=== PATIENT | female | born 1930 | race African-American/Black ===

== ENCOUNTER 2017-09-06 06:50 | Observation (INO) | payer MEDICARE, BC ==
[2017-09-06] MEDS ORDERED: Dextrose 50% Abboject 50 ML SYRINGE SLOW IVP PRN (07:51)
[2017-09-06] MEDS ORDERED: Dextrose 5% in Water 1,000 ML IV PRN (07:51)
[2017-09-06] MEDS ORDERED: Insulin Regular 300 UNITS/3 ML VIAL SC PRN (07:51)
[2017-09-06 08:01] LABS: Troponin I 0.016 ng/mL (< 0.028)
--- NOTE | 2017-09-06 08:29 | HP ---
DATE OF ADMISSION: 09/06/2017 CHIEF COMPLAINT: Chest pain. HISTORY OF PRESENT ILLNESS: This is an 86-year-old elderly -Serbian female with known past m edical history of hypertension and type 2 diabetes mellitus. The patient lives on her own in her [facility]. She lives for the past 2 weeks and was noticing some low grade chest pains associated with d iarrhea for the past 2-3 weeks. Chest pain she noted yesterday afternoon was mild, but 4/5 intensity was on the left precordium, not radiating. No aggravating or no relieving factors. Pain lasted for at least 1-2 hours and use to go away. She wanted to evaluate this pain and she went to [facility] where she had a chest x-ray and troponin which was negative. The patient was referred to [facility] for further evaluation of her recurrent chest pains. Patient has a known history of simila r chest pains in the past more than 2 years ago and had nuclear stress test at that time that was neg ative according to her. She otherwise is in good health. She has diabetes and hypertension, which i s fairly well controlled according to her. She has no family members or no support and she lives all alone and she has this chronic diarrhea for the past 2-3 weeks and she has been dehydrated and very weak and she is afraid of falls when she goes home. So she wanted to go to the penitentiary before s he goes back home and she wants to get much stronger. She denies having any abdominal pain. Denies having any recent antibiotic for any infection. She denied having any evidence of food poisoning. S he does have nausea along with diarrhea, but no vomiting. PAST MEDICAL HISTORY: 1. Hypertension. 2. Hyperlipidemia. 3. Type 2 diabetes mellitus. 4. History of depression. 5. History of breast cancer and history of colon cancer in the past. PAST SURGICAL HISTORY: 1. Partial colectomy for colon cancer many years ago. 2. Right lumpectomy for breast cancer. 3. History of abdominal hernia repairs in the past. SOCIAL HISTORY: The patient is a nonsmoker. No history of alcohol, no history of illicit drug use. She lives on her own. No other family member lives with her. No friends are there to help her acco rding to her. FAMILY HISTORY: Has been reviewed and not relevant for the elderly age of the patient. REVIEW OF SYSTEMS: All 12 systems are reviewed with the patient and found to be negative except at t his time except the ones described in the HPI. The following complete review of systems was negative , unless otherwise mentioned in the HPI or below: Constitutional: Weight loss or gain, sense of well-being, ability to conduct usual activities, exerc ise tolerance. Skin/Breast: Rash, itching, changes in hair growth or loss, nail changes, breast lumps, tenderness, swelling, nipple discharge. Eyes: Vision, double vision, tearing, blind spots, pain. ENT/Mouth: Headaches (location, time of onset, duration, precipitating factors), vertigo, lightheade dness, injury. Vision, double vision, tearing, blind spots, pain, nose bleeding, colds, obstruction, discharge, dental difficulties, gingival bleeding, dentures, neck stiffness, pain, tenderness, masses in thyroid or other areas Cardiovascular: Precordial pain, substernal distress, palpitations, syncope, dyspnea on exertion, or thopnea, nocturnal paroxysmal dyspnea, edema, cyanosis, hypertension, heart murmurs, varicosities, ph lebitis, claudication. Respiratory: Pain, shortness of breath, wheezing, stridor, cough, hemoptysis, fever or night sweats Gastrointestinal: Poor appetite, dysphagia, indigestion, abdominal pain, heartburn, eructation, naus ea, vomiting, hematemesis, jaundice, constipation, or diarrhea, abnormal stools (christian-colored, tarry, bloody, greasy, foul smelling), flatulence, hemorrhoids, recent changes in bowel habits. Genitourinary: Urgency, frequency, dysuria, nocturia, hematuria, polyuria, oliguria, unusual (or messi nge in) color of urine, stones, hesitancy, change in size of stream, dribbling, acute retention or in continence, libido, potency. Musculoskeletal: Pain, swelling, redness or heat of muscles or joints, limitation, of motion, muscul ar weakness, atrophy, cramps. Neurologic/Psychiatric: Convulsions, paralyses, tremor, incoordination, paraesthesias, difficulties with memory of speech, sensory or motor disturbances, or muscular coordination (ataxia, tremor), emot ional problems, anxiety, depression, previous psychiatric care, unusual perceptions, hallucinations. Allergy/Immunologic: Skin rash, anemia, bleeding tendency, polydipsia, polyuria, intolerance to heat or cold. PHYSICAL EXAMINATION: VITAL SIGNS: Blood pressure is 171/68, heart rate is 80, respiratory rate is 18, and saturation is 9 8%. GENERAL: The patient is moderately built and moderately nourished and she does not appear to be in a cute distress at this time. She is seen lying in the bed supine. Does not appear to be in any acute distress. HEENT: Atraumatic, normocephalic. PERRLA. Extraocular movements were intact. Oral mucosa is pink and moist. CARDIOVASCULAR: S1, S2 normal. No murmurs, no rubs, no gallops. LUNGS: Bilateral air entry was equal. No wheezing, no crackles. ABDOMEN: Soft, nontender, no guarding, no rebound tenderness. Bowel sounds normal. MUSCULOSKELETAL: No calf tenderness. No pedal edema. EXTREMITIES: No joint tenderness, no joint swelling. SKIN: No cyanosis, no erythema, no rash, no pallor. NEUROLOGIC: Cranial nerve examination II-XII intact. No focal deficits were noted. LYMPHATICS: No evidence of any lymph nodes were noted. NECK: No JVD, no thyromegaly was noted. LABORATORY DATA: Sodium 141, potassium 3.9, chloride 105, BUN 14, creatinine 1.2, troponin 0.01. UA was positive for urinary tract infection. D-dimer was elevated, WBC 10.5, hemoglobin 13.1, and german tocrit is normal. ASSESSMENT AND PLAN: 1. Acute chest pain. 2. Acute urinary tract infection. 3. Chronic diarrhea. 4. Intractable nausea. 5. Type 2 diabetes mellitus. 6. Uncontrolled hypertension. 7. History of depression. PLAN: 1. Plan is to restart the patient on normal saline at 75 an hour for hydration and we will closely m onitor the patient with serial troponins q.6 hours. We will do a nuclear stress test tomorrow if the patient's troponins levels remain normal. 2. We will start the patient on aspirin, beta liya, and statin. 3. As the patient has history of UTI with UA being positive, we will send for urine cultures and sta rt the patient on Rocephin 1 gram daily. 4. The patient has a history of elevated blood pressure and is poorly controlled. We will restart t he home medications and optimize the blood pressures to keep it less than 130/80. 5. History of type 2 diabetes mellitus, well-controlled. We will restart her home medication and pu t her on sliding scale insulin at this time and we will do hemoglobin A1c to look for the control. 6. As the patient has high risk for falls at home because of chronic comorbidities, we will discuss with case management for possible placement to penitentiary as the patient would be high risk for sofiya dmission and also for falls at home. 7. DVT prophylaxis, Lovenox 40 mg subcu daily. I spent 70 minutes on this patient.
[2017-09-06] MEDS ORDERED: Loperamide HCl 2 MG CAP PO PRN (09:43)
[2017-09-06] MEDS ORDERED: Zolpidem Tartrate 5 MG TAB PO PRN (09:43)
[2017-09-06] MEDS ORDERED: Pepto Bismol Chew TAB PO PRN (09:43)
[2017-09-06 09:57] VITALS: BMI 27.1
[2017-09-06 10:22] LABS: Cardiac Risk 4.1 (Less than 4.5)
[2017-09-06] MEDS ORDERED: Famotidine/PF 20 mg/2ml Vial SLOW IVP SCH (10:45)
[2017-09-06] MEDS ORDERED: Carvedilol 3.125 MG TAB PO SCH (10:45)
[2017-09-06] MEDS ORDERED: Enoxaparin Sodium 40 MG/0.4 ML SYRINGE SC SCH (10:45)
[2017-09-06] MEDS: Sodium Chloride 0.9% 1,000 ML IV SCH (10:53)
[2017-09-06] MEDS: hydrALAZINE 25 MG TAB PO SCH ×3 (11:03→20:51)
[2017-09-06] MEDS: Lisinopril/Hydrochlorothiazide 10 mg/12.5 mg Tablet PO SCH (11:29)
[2017-09-06] MEDS: Alogliptin 25 MG TAB PO SCH (11:29)
[2017-09-06] MEDS: Amlodipine 10 MG TAB PO SCH (11:29)
[2017-09-06] MEDS ORDERED: FLU VACC TS2017-18 (>65YR) 0.5 ML SYRINGE IM ONE (15:00)
[2017-09-06] MEDS ORDERED: Prevnar 13-Val Conj/PF 0.5 ML SYRINGE IM ONE (15:00)
[2017-09-06] MEDS ORDERED: Acetaminophen 325 MG TAB PO PRN (17:30)
[2017-09-06] MEDS: Carvedilol 3.125 MG TAB PO SCH (20:51)
[2017-09-06] MEDS: Famotidine 20 MG TAB PO SCH (20:51)
[2017-09-06] MEDS: Atorvastatin Calcium 40 MG TAB PO SCH (20:52)
[2017-09-06] MEDS: Donepezil HCl 10 MG TAB PO SCH (20:52)
[2017-09-07] MEDS: Sodium Chloride 0.9% 1,000 ML IV SCH ×2 (00:22→19:34)
[2017-09-07 06:02] LABS: #Eosinphils 0.2 thou/uL (0.0-0.7); #Lymphocytes 1.6 thou/uL (1.20-3.40); %Basophils 0.3 % (0.0-1.0); %Eosinophils 2.5 % (0.0-10.0); %Lymphocytes 18.4 % (21.0-51.0); %Monocytes 11.6 % (0.0-10.0); %Neutrophils 67.2 % (42.0-75.0); Hemoglobin 11.4 g/dL (12.0-16.0); Mean Corpuscular HGB CONC 33.1 g/dL (32.0-36.0); Mean Corpuscular Hemoglobin 27.8 pg (27.0-31.0); Mean Corpuscular Volume 84.1 fl (81.0-99.0); Mean Platelet Volume 9.3 fL (7.4-10.4); Platelet Count 192 thou/uL (130-400); RBC Distribution Width 11.8 % (11.5-14.5); Red Blood Cell (RBC) Count 4.08 mill/uL (4.20-5.40)
[2017-09-07 06:20] LABS: Anion Gap 13 mmol/L (10-20); BUN (Urea Nitrogen) 13 mg/dL (9.8-20.1); Calc. Creatinine Clearance 37 mL/min (70-130); Calcium 9.2 mg/dL (7.8-10.44); Carbon Dioxide 24 mmol/L (23-31); Chloride 107 mmol/L (98-107); Estimated GFR-MDRD 46; Glucose 101 mg/dL (83-110); Potassium 3.7 mmol/L (3.5-5.1); Sodium 140 mmol/L (136-145)
[2017-09-07] MEDS ORDERED: Famotidine/PF 20 mg/2ml Vial SLOW IVP SCH (09:00)
[2017-09-07] MEDS: hydrALAZINE 25 MG TAB PO SCH ×3 (12:04→20:46)
[2017-09-07] MEDS: Lisinopril/Hydrochlorothiazide 10 mg/12.5 mg Tablet PO SCH (12:07)
[2017-09-07] MEDS: Amlodipine 10 MG TAB PO SCH (12:13)
[2017-09-07] MEDS: Aspirin 325 MG TAB PO SCH (12:15)
[2017-09-07] MEDS: Alogliptin 25 MG TAB PO SCH (12:15)
[2017-09-07] MEDS: Enoxaparin Sodium 40 MG/0.4 ML SYRINGE SC SCH (12:17)
[2017-09-07] MEDS: Carvedilol 3.125 MG TAB PO SCH ×2 (12:20→20:45)
[2017-09-07 14:14] LABS: Anion Gap 14 mmol/L (10-20); BUN (Urea Nitrogen) 12 mg/dL (9.8-20.1); Calc. Creatinine Clearance 35 mL/min (70-130); Calcium 9.9 mg/dL (7.8-10.44); Carbon Dioxide 22 mmol/L (23-31); Chloride 107 mmol/L (98-107); Estimated GFR-MDRD 43; Glucose 101 mg/dL (83-110); Potassium 3.9 mmol/L (3.5-5.1); Sodium 139 mmol/L (136-145)
--- NOTE | 2017-09-07 14:38 | PDOC.PN ---
- Subjective Encounter Start Date: 09/07/17 Encounter Start Time: 14:38 Patient seen and examined. No new complaints. No overnight events - Objective Resuscitation Status: Resuscitation Status FULL:Full Resuscitation MAR Reviewed: Yes Vital Signs & Weight: Vital Signs (12 hours) Temp Pulse Pulse Pulse Resp BP BP 09/07/17 13:50 73 73 145/73 H 09/07/17 12:13 78 129/69 09/07/17 12:07 78 129/69 09/07/17 12:04 83 129/69 09/07/17 11:55 98.0 F 78 16 09/07/17 07:35 99.3 F 78 16 09/07/17 07:31 99.3 F 75 16 09/07/17 04:02 98.5 F 86 15 153/68 H BP BP Pulse Ox 09/07/17 13:50 159/71 H 09/07/17 12:13 09/07/17 12:07 09/07/17 12:04 09/07/17 11:55 165/81 H 100 09/07/17 07:35 09/07/17 07:31 126/60 93 L 09/07/17 04:02 97 Weight Weight 173 lb 12.8 oz I&O: 09/06/17 09/07/17 09/08/17 06:59 06:59 06:59 Intake Total 1975 Output Total 1200 Balance 775 Result Diagrams: 09/07/17 05:17 09/07/17 13:32 Additional Labs: Accuchecks 09/07/17 09/07/17 09/06/17 12:12 05:26 21:34 POC Glucose 102 110 144 H Phys Exam - Physical Examination Constitutional: NAD HEENT: PERRLA Neck: no JVD Respiratory: no rales Cardiovascular: no significant murmur Gastrointestinal: non-tender Musculoskeletal: pulses present Neurological: moves all 4 limbs Psychiatric: A&O x 3 Dx/Plan (1) Chest pain Code(s): R07.9 - CHEST PAIN, UNSPECIFIED Status: Acute (2) Chest pain as manifestation of blood transfusion reaction Code(s): R07.9 - CHEST PAIN, UNSPECIFIED; T80.89XA - OTH COMP FOL INFUSION, TRANSFUSE AND THERAPUTC INJECT, INIT; Y84.8 - OTH MEDICAL PROCEDURES CAUSE ABN REACT/COMPL, W/O MISADVNT Status: Acute (3) Chronic diarrhea Code(s): K52.9 - NONINFECTIVE GASTROENTERITIS AND COLITIS, UNSPECIFIED Status : Acute (4) Diabetes mellitus Code(s): E11.9 - TYPE 2 DIABETES MELLITUS WITHOUT COMPLICATIONS Status: Acute - Plan * f/u stress test * f/u ur cul * f/u cdiff
--- NOTE | 2017-09-07 15:40 | NM ---
NUCLEAR MEDICINE CARDIAC MYOCARDIAL PERFUSION SPECT EJECTION FRACTION STUDY WALL MOTION CINE: HISTORY: 86-year-old female with chest pain, hypertension, diabetes mellitus and dyslipidemia. TECHNIQUE: Number of days: 1 Rest study: Tc99m sestamibi (Cardiolite) dose: 10.0 mCi Pharmacologic stress: adenosine dose: 43.7 mg Stress study: Tc99m sestamibi (Cardiolite) dose: 27.5 mCi FINDINGS: CARDIAC (MYOCARDIAL PERFUSION) SPECT No reversible defect is identified. There is a questionable small fixed defect at the inferior wall. EJECTION FRACTION STUDY EF = 69% WALL MOTION CINE No focal wall motion abnormality identified. IMPRESSION: No reversible ischemia identified. CHACORTA Crawford POS: [facility]
[2017-09-07] MEDS ORDERED: ADENOSINE 60 MG/20 ML VIAL ONE (16:39)
[2017-09-07] MEDS: Atorvastatin Calcium 40 MG TAB PO SCH (20:44)
[2017-09-07] MEDS: Famotidine 20 MG TAB PO SCH (20:46)
[2017-09-07] MEDS: Donepezil HCl 10 MG TAB PO SCH (20:46)
[2017-09-08 05:27] VITALS: TEMP 98.1
[2017-09-08] MEDS: Sodium Chloride 0.9% 1,000 ML IV SCH ×2 (06:35→09:07)
[2017-09-08 06:43] LABS: #Eosinphils 0.3 thou/uL (0.0-0.7); #Lymphocytes 2.1 thou/uL (1.20-3.40); #Monocytes 1.3 thou/uL (0.11-0.59); #Neutrophils 5.6 thou/uL (1.40-6.50); %Basophils 0.3 % (0.0-1.0); %Eosinophils 2.7 % (0.0-10.0); %Lymphocytes 22.9 % (21.0-51.0); %Monocytes 14.1 % (0.0-10.0); Hemoglobin 11.2 g/dL (12.0-16.0); Mean Corpuscular HGB CONC 33.1 g/dL (32.0-36.0); Mean Corpuscular Hemoglobin 27.8 pg (27.0-31.0); Mean Platelet Volume 9.8 fL (7.4-10.4); Platelet Count 176 thou/uL (130-400); Red Blood Cell (RBC) Count 4.01 mill/uL (4.20-5.40); White Blood Cell (WBC) Count 9.4 thou/uL (4.8-10.8)
[2017-09-08 06:51] LABS: Anion Gap 11 mmol/L (10-20); BUN (Urea Nitrogen) 14 mg/dL (9.8-20.1); Calc. Creatinine Clearance 39 mL/min (70-130); Calcium 9.3 mg/dL (7.8-10.44); Carbon Dioxide 25 mmol/L (23-31); Chloride 108 mmol/L (98-107); Estimated GFR-MDRD 48; Glucose 107 mg/dL (83-110); Potassium 3.5 mmol/L (3.5-5.1); Sodium 140 mmol/L (136-145)
[2017-09-08] MEDS: Amlodipine 10 MG TAB PO SCH (08:28)
[2017-09-08] MEDS: Carvedilol 3.125 MG TAB PO SCH (08:28)
[2017-09-08] MEDS: hydrALAZINE 25 MG TAB PO SCH (08:28)
[2017-09-08] MEDS: Aspirin 325 MG TAB PO SCH (08:28)
[2017-09-08] MEDS: Lisinopril/Hydrochlorothiazide 10 mg/12.5 mg Tablet PO SCH (08:28)
[2017-09-08] MEDS: Enoxaparin Sodium 40 MG/0.4 ML SYRINGE SC SCH (08:29)
[2017-09-08] MEDS: Alogliptin 25 MG TAB PO SCH (08:41)
[2017-09-08 13:42] VITALS: BP 135/61
--- NOTE | 2017-09-08 19:58 | DIS ---
DATE OF ADMISSION: 09/06/2017 DATE OF DISCHARGE: 09/08/2017 DISCHARGE DIAGNOSES: 1. Chest pain, atypical, possibly secondary to gastritis with negative stress test. 2. Hypertension, stable. 3. Hyperlipidemia, stable. 4. Type 2 diabetes, controlled by diet. 5. History of depression. 6. History of breast cancer. 7. History of colon cancer, stable. 8. Deconditioning, to be discharged to rehab. 9. Suspected urinary tract infection. Urine culture negative, resolved. 10. Chronic diarrhea, resolved. 11. Intractable nausea, resolved. BRIEF HOSPITAL COURSE: This is an 86-year-old pleasant lady who lives alone, came into the hospital with chest pain. Please refer to the admitting physician's H&P for further details. For the chest p ain, she had a stress test and was put on ACS protocol such as stress test was negative, EF was 69% a nd she is doing well. She right now does not complain of any chest pain. She complained of some mary jane oing chronic diarrhea for which stool studies were done, all of the stool studies were negative. She has been advised to take over the counter, slowing antidiarrheal medications. The patient's diabete s was stable. Her blood sugar was well controlled. Hypertension, we added Coreg with control of blo od pressure adequately. Her kidney functions were little bad which improved with gentle hydration. She is asked to not take anymore hydrochlorothiazide or ibuprofen for pain. She is asked to use Tyle nol for pain. Right now she is doing much better. PHYSICAL EXAMINATION: VITAL SIGNS: At the time of discharge, her blood pressure was 170/93, afebrile, pulse of 61, respira tions 18. GENERAL: The patient was lying in bed in no apparent distress. HEENT: Atraumatic and normocephalic. Pupils equally round, react to light. Extraocular movements i ntact. Mucous membranes moist. NECK: Supple. No JVD. CHEST: Breath sounds heard. There are no rales or rhonchi. HEART: S1, S2, no murmurs or gallops. ABDOMEN: Soft. EXTREMITIES: No cyanosis, clubbing or edema. Distal pulses present. NEUROLOGIC: Alert, awake, oriented. No cranial deficits. No sensorimotor deficits. The patient is right now medically stable to be discharged to [facility] when bed available. She is asked to come back to the emergency room when symptoms recur. Total time for this discharge took 35 minutes.
--- NOTE | 2017-09-10 10:45 | STRESS ---
Acquisition Time: 2017-09-07 09:55:16 Total Exercise Time: 00:04:00 Test Indications: CHEST PAIN Medications: Protocol: ADENOSINE Max HR: 088 BPM 66% of Pred: 133 BPM Max BP: 176/078 mmHG Max Work Load: 1.0 METS THE PATIENT WAS INJECTED WITH ADENOSINE. SHE DID NOT DEVELOP CHEST PAIN. THERE WAS NO SIGNIFICANT ST DEPRESSION. AWAIT NUCLEAR IMAGES FOR DEFINITIVE DIAGNOSIS. Confirmed by DIONNE DUMONT ([id number]), editorial project manager SAVANNAH MELGAR ([id number]) on 09/10/2017 10:45:14 AM Referred By: MD Manda HORTON Confirmed By:DIONNE DUMONT
== END 2017-09-08 14:02 | disposition home or self-care (01) ==
LOC: ERS 06:50 → 2SW 07:17
PROVIDERS: ADMIT Family Medicine; ATTEND Family Medicine
DX: R07.89 Other chest pain (principal); I10 Essential (primary) hypertension; E78.5 Hyperlipidemia, unspecified; E11.9 Type 2 diabetes mellitus without complications; R53.81 Other malaise; K52.9 Noninfective gastroenteritis and colitis, unspecified; R11.0 Nausea; F32.9 Major depressive disorder, single episode, unspecified; Z88.0 Allergy status to penicillin; Z98.890 Other specified postprocedural states; Z90.49 Acquired absence of other specified parts of digestive tract; Z85.038 Personal history of other malignant neoplasm of large intestine; Z85.3 Personal history of malignant neoplasm of breast
CPT/HCPCS: 78452; 80048 ×3; 80061; 82274; 82962 ×3; 83630; 84484; 85025 ×2; 87045; 87046; 87086; 87324; 87449 ×2; 87899 ×2; 90670; 93005; 93017; 94760 ×3; 96361 ×3; 96372 ×3; 96374; 97116; 97139; 99285; A9500; G0008; G0009; G0378; G8978; G8979; Q2036; 36415; 36416; 90471; 90682; J0153; J1650; J1956; S0028

== ENCOUNTER 2018-07-04 08:33 | Outpatient (CLI) | payer MEDICARE, BC ==
--- NOTE | 2018-07-04 12:28 | MRI ---
MRI LUMBAR SPINE: 07/04/2018 HISTORY: Lumbar stenosis. Radiculopathy. Pain. COMPARISON: 05/17/2016 TECHNIQUE: Multiplanar, multisequence MR imaging of the lumbar spine is provided without contrast. FINDINGS: Sagittal STIR imaging demonstrates no focal area of osseous marrow edema. There is prominent bilater al facet hypertrophy at L3-L4 with small volume fluid signal intensity within the hypertrophic facet joints. At L1, there is a benign hemangioma. The conus medullaris terminates at the L1-L2 level. T12-L1: Mild bilateral facet hypertrophy. No significant central canal or neural foraminal stenosis . L1-L2: Mild bilateral facet hypertrophy and hypertrophy of the ligamentum flavum, right greater than left. Disk desiccation and minimal disk bulge with no significant central canal or neural foraminal stenosis. L2-L3: Bilateral facet hypertrophy and hypertrophy of the ligamentum flavum. Disk space narrowing, disk desiccation, and mild disk bulge present. No significant central canal stenosis. Mild right ne ural foraminal stenosis. L3-L4: There is disk space narrowing, disk desiccation, and disk bulge. There is also prominent fac et hypertrophy and hypertrophy of the ligamentum flavum. Findings cause severe central canal stenosi s, as well as moderate/severe bilateral neural foraminal stenosis, left greater than right. When com pared to the 2016 examination, the degree of central canal and neural foraminal stenosis has not sign ificantly changed. L4-L5: Bilateral facet hypertrophy and hypertrophy of the ligamentum flavum, right greater than left . Mild central canal stenosis and mild bilateral neural foraminal stenosis, left greater than right. L5-S1: Bilateral facet hypertrophy. There is disk desiccation, mild disk bulge, and vacuum disk for mation. Mild bilateral neural foraminal stenosis, right greater than left. No significant central c anal stenosis. Imaged retroperitoneal structures appear grossly unremarkable. IMPRESSION: Multilevel degenerative change within the lumbar spine, most prominent at L3-L4. Findings are not si gnificantly changed when compared to the 2016 examination. POS: [facility]
== END 2018-07-04 08:34 | disposition home or self-care (01) ==
LOC: BICMRI 08:33
PROVIDERS: ATTEND Neurological Surgery
DX: M48.061 Spinal stenosis, lumbar region without neurogenic claudication (principal); M47.816 Spondylosis without myelopathy or radiculopathy, lumbar region
CPT/HCPCS: 72148

== ENCOUNTER 2018-07-31 07:22 | Observation (INO) | payer MEDICARE, BC ==
[2018-07-30 14:00] VITALS: BMI 27.8
--- NOTE | 2018-07-30 18:45 | HP ---
HISTORY OF PRESENT ILLNESS: Ms. Paz is known to me from evaluation of lumbar stenosis in 2016, who is ultimately referred to Dr. Marshall with arthritis of a rather significant nature, who returns today with more or less the same problem. She has had no new imaging but has had significant progression in her pain, so we sent her out for a repeat MRI by Radiology, which ultimately revealed a severe lumbar stenosis at L3-L4. She was treated with some injections, therapy and medications and now hopes to move forward with surgery if possible. PAST MEDICAL HISTORY: Significant for: 1. Hypertension. 2. Gastroesophageal reflux disease. 3. Diabetes. 4. IBS. 5. Anxiety. CURRENT MEDICATIONS: 1. Sertraline. 2. Gabapentin. 3. Pravastatin. 4. Mirtazapine. 5. . 6. Loperamide. 7. Lisinopril. 8. Hydrochlorothiazide. 9. Januvia. 10. Donepezil. 11. Potassium. 12. Pepcid. 13. Hydralazine. 14. Amlodipine. PAST SURGICAL HISTORY: 1. Colectomy. 2. Mastectomy of right. 3. Cholecystectomy. 4. Herniorrhaphy. ALLERGIES: PENICILLIN. PHYSICAL EXAMINATION: The patient is alert and oriented x3. Gait is severely antalgic. Lower extremity; motor exam is normal. ASSESSMENT: Lumbar spinal stenosis. PLAN: Dr. Marshall for L3-L4 decompression. He explained to the patient the risks, benefits, and alternatives of the procedure. The patient expressed understanding of the surgery that was discussed. to make medical decisions for herself. We will move forward with surgery as planned. Job ID: [id number]
[2018-07-31] MEDS ORDERED: Clindamycin/D5W 900 mg/50 ml Premix Bag ONE (08:06)
[2018-07-31] MEDS ORDERED: Levofloxacin 500 mg/D5W 100 ml Premix Bag ONE (08:06)
[2018-07-31 08:18] LABS: Anion Gap 15 mmol/L (10-20); BUN (Urea Nitrogen) 22 mg/dL (9.8-20.1); Calc. Creatinine Clearance 33 mL/min (70-130); Calcium 9.8 mg/dL (7.8-10.44); Carbon Dioxide 26 mmol/L (23-31); Chloride 106 mmol/L (98-107); Estimated GFR-MDRD 40; Glucose 126 mg/dL (83-110); Potassium 4.4 mmol/L (3.5-5.1); Sodium 143 mmol/L (136-145)
[2018-07-31] MEDS ORDERED: Bupivacaine HCl 0.5%/Epinephrine 1:200,000/PF 30 ml Vial ONE (08:21)
[2018-07-31] MEDS ORDERED: Fentanyl 100 MCG/2 ML VIAL ONE (08:42)
[2018-07-31] MEDS ORDERED: HYDROmorphone 2 MG/ML VIAL SLOW IVP PRN (09:42)
[2018-07-31] MEDS ORDERED: Meperidine HCl/PF 25 MG/ML VIAL SLOW IVP PRN (09:42)
[2018-07-31] MEDS ORDERED: PACU-Morphine 4MG/ML VIAL SLOW IVP PRN (09:42)
[2018-07-31] MEDS ORDERED: Ondansetron HCl/PF 4 MG/2 ML Vial IVP PRN (09:42)
[2018-07-31] MEDS ORDERED: Promethazine HCl 25 MG/ML VIAL IM PRN ×2 (09:42→12:03)
[2018-07-31] MEDS ORDERED: Promethazine HCl 25 MG/ML VIAL SLOW IVP PRN (09:42)
[2018-07-31] MEDS ORDERED: Morphine Sulfate 2 MG/ML SYRINGE SLOW IVP PRN (09:42)
[2018-07-31] MEDS ORDERED: Dexamethasone 20 MG/5 ML VIAL ONE (09:44)
[2018-07-31] MEDS ORDERED: Lidocaine 1% PF 5 ML VIAL ONE (09:44)
[2018-07-31] MEDS ORDERED: PROPOFOL 200 MG/20 ML VIAL ONE (09:44)
[2018-07-31] MEDS ORDERED: Glycopyrrolate 0.2 MG/ML 5 ML SYRINGE ONE (09:44)
[2018-07-31] MEDS ORDERED: Ondansetron PF 4 MG/2 ML Vial ONE (09:44)
[2018-07-31] MEDS ORDERED: SUGAMMADEX SODIUM 200 MG/2 ML VIAL ONE (10:13)
[2018-07-31] MEDS ORDERED: Morphine 2 MG/ML SYRINGE ONE (10:43)
[2018-07-31] MEDS ORDERED: Ondansetron PF 4 MG/2 ML Vial IM PRN (12:03)
[2018-07-31] MEDS ORDERED: HYDROcodone/Acetaminophen 7.5/325 mg Tablet PO PRN ×2 (12:03)
[2018-07-31] MEDS ORDERED: tiZANidine HCl 4 MG TAB PO PRN (12:03)
[2018-07-31] MEDS ORDERED: Promethazine HCl 12.5 MG SUPP PR PRN (12:03)
[2018-07-31] MEDS ORDERED: Promethazine 25 MG TAB PO PRN (12:03)
[2018-07-31] MEDS: Sodium Chloride 0.9% 1,000 ML IV SCH ×2 (12:36→21:51)
[2018-07-31] MEDS: Clindamycin/D5W 900 MG in Premix Bag 1 BAG IVPB SCH (17:11)
--- NOTE | 2018-07-31 20:09 | EKG ---
Test Reason : PREOP Blood Pressure : / mmHG Vent. Rate : 088 BPM Atrial Rate : 088 BPM P-R Int : 154 ms QRS Dur : 074 ms QT Int : 382 ms P-R-T Axes : 077 037 073 degrees QTc Int : 462 ms Sinus rhythm with Premature atrial complexes Otherwise normal ECG When compared with ECG of 06-SEP-2017 06:59, No significant change was found Confirmed by TEJ BYRD, . SMellisa ([id number]) on 07/31/2018 8:09:08 PM Referred By: FAREED Confirmed By:DR. Robb BURNHAM MD
[2018-08-01] MEDS: Clindamycin/D5W 900 MG in Premix Bag 1 BAG IVPB SCH (01:11)
--- NOTE | 2018-08-01 10:44 | DIS ---
DATE OF ADMISSION: 07/31/2018 DATE OF DISCHARGE: 08/01/2018 HISTORY: Ms. Paz is an 87-year-old woman, who was admitted to [facility] to Dr. Suresh Marshall in the postoperative period on 07/31/2018 with subsequent discharge the following day, 08/01/2018. ADMISSION DIAGNOSIS: Status post lumbar decompression. DISCHARGE DIAGNOSIS: Status post lumbar decompression. HOSPITAL COURSE: Ms. Paz tolerated her hospital course very well and was ultimately discharged home in good condition with outpatient follow up. Job ID: [id number]
[2018-08-01 12:25] VITALS: BP 138/74; TEMP 98
--- NOTE | 2018-08-02 15:17 | OP ---
DATE OF PROCEDURE: 07/31/2018 ELECTRICAL SYSTEMS DESIGN ENGINEER: None. INDICATION: Pain. DIAGNOSIS: Lumbar stenosis. PROCEDURE PERFORMED: L3-L4 lumbar decompression. ANESTHESIA: General. DESCRIPTION OF PROCEDURE: The patient was brought into the operating room and placed under general anesthesia. She was flipped from the supine to the prone position on the operating room table. A linear incision was planned over the L3-L4 segment. After prepping and draping and after a after a preoperative pause, the incision was created. The soft tissues were swept away from midline and the self-retaining retractor was placed. Using an Adson rongeur as well as high-speed cutting drill bit, as well as 2, 3, and 4 mm Kerrison's, a laminectomy was performed at the L3-L4 interspace. The segment was decompressed. After decompression, the wound was irrigated. Hemostasis was maintained throughout. The wound was then closed in anatomic layers and a pressure dressing was applied. There were no known procedural complications. Job ID: [id number]
== END 2018-08-01 12:38 | disposition home or self-care (01) ==
LOC: SDC 07:22 → SURG A 11:28
PROVIDERS: ADMIT Neurological Surgery; ATTEND Neurological Surgery
PROC: 01NB0ZZ Release Lumbar Nerve, Open Approach (ICD-10-PCS; principal; 2018-07-31)
DX: M48.062 Spinal stenosis, lumbar region with neurogenic claudication (principal); M54.16 Radiculopathy, lumbar region; K21.9 Gastro-esophageal reflux disease without esophagitis; F41.9 Anxiety disorder, unspecified; F32.9 Major depressive disorder, single episode, unspecified; F03.90 Unspecified dementia, unspecified severity, without behavioral disturbance, psychotic disturbance, mood disturbance, and anxiety; E11.9 Type 2 diabetes mellitus without complications; K58.9 Irritable bowel syndrome, unspecified; I10 Essential (primary) hypertension; Z79.84 Long term (current) use of oral hypoglycemic drugs; Z79.899 Other long term (current) drug therapy; Z88.0 Allergy status to penicillin; Z90.49 Acquired absence of other specified parts of digestive tract
CPT/HCPCS: 63005; 76001; 80048; 82962; 93005; 96361 ×2; 96365; 96374; 96376; 97139; 97530; G0378; G8978; G8979; G8980; 36415; 36416; 93010; J0131; J0670; J1100; J1956; J2001; J2270; J2405; J2704; J3010; J3490

== ENCOUNTER 2018-10-24 10:45 | Outpatient (CLI) | payer MEDICARE, BC ==
--- NOTE | 2018-10-24 11:44 | RAD ---
LUMBAR SPINE THREE VIEWS: INDICATIONS: Low back pain. COMPARISON: Lumbar films from 06/21/2017. TECHNIQUE: Lateral views obtained in neutral flexion and extension positions. FINDINGS: Lumbar vertebrae maintain height. There is mild anterolisthesis at L3-L4, measured at approximately 3 mm. There is a slightly more prominent anterolisthesis at L4-L5, measured at 4 to 5 mm. The listh esis at L4-L5 was present previously. The listhesis at L3-L4 is more prominent today than on the osvaldo or study. Mild degenerative osteophytes are seen at all levels. Prominent facet hypertrophy is again noted thr oughout. Disk spaces are maintained with mild loss of disk space at L5-S1, stable from prior exam. The listhesis at L3-L4 and at L4-L5 did not appear to significantly change with flexion or extension. IMPRESSION: 1. Degenerative changes of the lumbar spine. 2. Anterolisthesis at L3-L4 and at L4-L5, as described. POS: [facility]
== END 2018-10-24 10:46 | disposition home or self-care (01) ==
LOC: TBSIIMAG 10:45
PROVIDERS: ATTEND Neurological Surgery
DX: M54.5 Low back pain (principal); M47.816 Spondylosis without myelopathy or radiculopathy, lumbar region; M43.16 Spondylolisthesis, lumbar region
CPT/HCPCS: 72100

== ENCOUNTER 2019-02-03 11:55 | Emergency (ER) | payer MEDICARE, BC ==
[~2019-02-03 11:55] MED LIST: ISOVUE-370 76%-LOCM 1 ML ONE
[2019-02-03 12:37] LABS: #Eosinphils 0.3 thou/uL (0.0-0.7); #Lymphocytes 2.8 thou/uL (1.20-3.40); #Monocytes 0.9 thou/uL (0.11-0.59); #Neutrophils 7.1 thou/uL (1.40-6.50); %Basophils 0.4 % (0.0-1.0); %Monocytes 8.2 % (0.0-10.0); %Neutrophils 63.4 % (42.0-75.0); Hemoglobin 10.9 g/dL (12.0-16.0); Mean Corpuscular HGB CONC 32.1 g/dL (32.0-36.0); Mean Corpuscular Hemoglobin 26.5 pg (27.0-31.0); Mean Corpuscular Volume 82.6 fL (78.0-98.0); Platelet Count 231 thou/uL (130-400); RBC Distribution Width 12.3 % (11.5-14.5); Red Blood Cell (RBC) Count 4.11 mill/uL (4.20-5.40); White Blood Cell (WBC) Count 11.2 thou/uL (4.8-10.8)
[2019-02-03 13:04] LABS: ALT (SGPT) 10 U/L (8-55); AST (SGOT) 15 U/L (5-34); Albumin 4.1 g/dL (3.4-4.8); Alkaline Phosphatase 97 U/L (40-150); Anion Gap 11 mmol/L (10-20); BUN (Urea Nitrogen) 17 mg/dL (9.8-20.1); Bilirubin, Total 0.4 mg/dL (0.2-1.2); Calc. Creatinine Clearance 0 mL/min (70-130); Calcium 9.7 mg/dL (7.8-10.44); Carbon Dioxide 24 mmol/L (23-31); Chloride 109 mmol/L (98-107); Estimated GFR-MDRD 43; Globulin 3.1 g/dL (2.4-3.5); Glucose 100 mg/dL (83-110); Lipase 194 U/L (8-78); Potassium 4.2 mmol/L (3.5-5.1); Protein, Total 7.2 g/dL (6.0-8.3); Sodium 140 mmol/L (136-145)
[2019-02-03] MEDS ORDERED: Ondansetron PF 4 MG/2 ML Vial ONE (13:58)
--- NOTE | 2019-02-03 14:38 | CT ---
CT OF THE ABDOMEN AND PELVIS WITH IV CONTRAST INDICATION: Diarrhea and abdominal pain COMPARISON: None FINDINGS: ABDOMEN: Lung bases: There is bibasilar atelectasis. Liver: No focal lesion. Gallbladder: Surgically absent Pancreas: Normal. Adrenal glands: Normal. Spleen: Normal. Kidneys: Normal. Retroperitoneum of the upper abdomen: There are mild vascular calcifications seen involving the visua lized vasculature. No pathologically enlarged lymph nodes are evident. Pelvis: Small and large bowel: There is postprocedural change suspicious for a prior right hemicolectomy. The small bowel is of normal caliber. Few scattered diverticula seen involving the colon without evidence of active diverticulitis. Bladder: Normal. Rectal and perirectal soft tissues:Normal. Reproductive structures: Uterus and adnexa appear to be surgically absent. Free fluid in pelvis: No free fluid is evident. Lymphadenopathy pelvis: No lymphadenopathy is evident. Osseous structures: No acute osseous abnormality. No destructive osteolytic or osteoblastic lesion i s identified. There is scattered degenerative and osteoarthritic changes. There is severe right and moderate left hip osteoarthrosis. 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 IMPRESSION: 1. No acute abnormality.
[2019-02-03 15:28] LABS: Bilirubin Negative (Negative); Blood, Urine Negative (Negative); Clarity CLEAR (Clear); Glucose, Urine (Dipstick) Negative (Negative); Leukocyte Negative (Negative); Nitrite Negative (Negative); Protein, Urine (Dipstick) Negative (Neg-Trace); Specific Gravity, Urine 1.012 (1.002-1.036); Urobilinogen 0.2 mg/dL (0.2-1.0); pH, Urine 5.5 (5.0-9.0)
== END 2019-02-03 15:45 | disposition home or self-care (01) ==
LOC: ERS 11:55
DX: R19.7 Diarrhea, unspecified (principal); R11.0 Nausea; F32.9 Major depressive disorder, single episode, unspecified; I10 Essential (primary) hypertension; E11.9 Type 2 diabetes mellitus without complications; Z79.899 Other long term (current) drug therapy
CPT/HCPCS: 36415; 74177; 80053; 81003; 83605; 83690; 85025; 93005; 96361; 96374; J2405; Q9966

== ENCOUNTER 2019-04-06 16:37 | Inpatient (IN) | payer MEDICARE, BC ==
[2019-04-06] MEDS ORDERED: Ondansetron PF 4 MG/2 ML Vial ONE (17:29)
[2019-04-06 17:49] LABS: #Basophils 0.1 thou/uL (0.0-0.2); #Lymphocytes 3.1 thou/uL (1.20-3.40); #Monocytes 1.2 thou/uL (0.11-0.59); #Neutrophils 8.5 thou/uL (1.40-6.50); %Basophils 0.9 % (0.0-1.0); %Eosinophils 0.3 % (0.0-10.0); %Lymphocytes 24.1 % (21.0-51.0); %Neutrophils 65.7 % (42.0-75.0); Mean Corpuscular HGB CONC 32.4 g/dL (32.0-36.0); Mean Corpuscular Hemoglobin 26.6 pg (27.0-31.0); Mean Corpuscular Volume 82.2 fL (78.0-98.0); Mean Platelet Volume 9.6 fL (7.4-10.4); Platelet Count 280 thou/uL (130-400); RBC Distribution Width 12.4 % (11.5-14.5); Red Blood Cell (RBC) Count 4.89 mill/uL (4.20-5.40); White Blood Cell (WBC) Count 12.9 thou/uL (4.8-10.8)
[2019-04-06 18:30] LABS: ALT (SGPT) 9 U/L (8-55); AST (SGOT) 21 U/L (5-34); Albumin 4.6 g/dL (3.4-4.8); Alkaline Phosphatase 104 U/L (40-150); Anion Gap 17 mmol/L (10-20); BUN (Urea Nitrogen) 46 mg/dL (9.8-20.1); Bilirubin, Total 0.4 mg/dL (0.2-1.2); Calc. Creatinine Clearance 0 mL/min (70-130); Calcium 10.7 mg/dL (7.8-10.44); Carbon Dioxide 20 mmol/L (23-31); Chloride 105 mmol/L (98-107); Estimated GFR-MDRD 18; Globulin 3.9 g/dL (2.4-3.5); Glucose 116 mg/dL (83-110); Lipase 26 U/L (8-78); Potassium 5.5 mmol/L (3.5-5.1); Protein, Total 8.5 g/dL (6.0-8.3); Sodium 136 mmol/L (136-145)
--- NOTE | 2019-04-06 19:52 | CT ---
ABDOMEN AND PELVIC CT SCAN WITHOUT IV CONTRAST: History: Abdominal pain with nausea and vomiting. Comparison: 02-03-19 FINDINGS: The lung bases are clear. Status post cholecystectomy. Visualized pancreas, spleen, adrenal glands un remarkable. No renal calculus or acute obstruction. The right kidney is somewhat smaller than the left and there is slight fullness of the right upper renal collecting system but no evidence for acut e calculus. Stable appearance from prior study. Evidence for status post right hemicolectomy. No l arge or small bowel obstruction. No abscess or abnormal fluid collection. Marked arthrosis and degene rative changes of both hip joints, worse on the right side. Multilevel lumbar spinal canal stenosis. IMPRESSION: No significant acute process in the abdomen or pelvis. Other findings as above. POS: [facility]
[2019-04-06] MEDS ORDERED: Ondansetron PF 4 MG/2 ML Vial IVP PRN (21:25)
[2019-04-06] MEDS ORDERED: Ondansetron ODT 4 MG TAB PO PRN (21:25)
[2019-04-06] MEDS ORDERED: Acetaminophen 650 MG Suppository PR PRN (21:25)
[2019-04-06] MEDS: Sodium Chloride 0.9% 1,000 ML IV SCH (22:19)
[2019-04-06 23:00] VITALS: BMI 22.7
[2019-04-06] MEDS ORDERED: Melatonin 3 MG TAB PO PRN (23:06)
[2019-04-06] MEDS ORDERED: Donepezil HCl 10 MG TAB PO SCH (23:15)
[2019-04-06] MEDS ORDERED: Famotidine 20 MG TAB PO SCH (23:15)
[2019-04-06] MEDS ORDERED: Losartan 25 MG TAB PO SCH (23:15)
[2019-04-06] MEDS ORDERED: Simvastatin 5 MG TAB PO SCH (23:15)
[2019-04-06] MEDS ORDERED: Lisinopril 10 MG TAB PO SCH (23:45)
[2019-04-06] MEDS ORDERED: cloNIDine 0.1 MG TAB PO PRN (23:57)
[2019-04-07] MEDS: Acetaminophen 325 MG TAB PO PRN (00:09)
--- NOTE | 2019-04-07 03:11 | HP ---
CODE STATUS: Full code. TIME OF EVALUATION: 8:20 p.m. CHIEF COMPLAINT: Abdominal pain. HISTORY OF PRESENT ILLNESS: This is an 88-year-old female patient with past medical history of hypertension, breast cancer, status post surgery, renal failure, came to the hospital after having abdominal pain, with nausea and symptoms have been going on for weeks. The patient has anorexia, symptoms started insidiously and has been gradually getting worse. Symptoms are generalized. No clear triggers, no alleviating factors. REVIEW OF SYSTEMS: Unable to obtain. The patient has dementia. The information does not seems to be accurate. PAST MEDICAL HISTORY: As mentioned in the HPI. PAST SURGICAL HISTORY: The patient has a history of appendectomy, cholecystectomy, colon resection, mastectomy of the right breast. PSYCHIATRIC HISTORY: Includes depression. SOCIAL HISTORY: No alcohol. No drugs. No smoking history. Lives at home with son. KNOWN ALLERGIES: Penicillin. FAMILY HISTORY:Reviewed and non contributory for current presentation. REPORTED MEDICATIONS: 1. Famotidine. 2. Donepezil. 3. Potassium chloride. 4. Pravastatin. 5. Sertraline. 6. Probiotics. PHYSICAL EXAMINATION: VITAL SIGNS: On presentation, blood pressure 155/88 with heart rate 88, respiratory rate was 18, temperature 98.3, oxygen saturation 99% on room air. GENERAL APPEARANCE: The patient is alert and oriented x2, not in acute distress. HEENT: Eyes, normal conjunctivae. Moist oral mucosa. Anicteric. No JVD. RESPIRATORY: Bilateral air entry. No rales. No wheezes. Symmetric expansion. CARDIOVASCULAR: Normal rate, regular rhythm. No murmurs. No gallop. No edema. ABDOMEN: Soft, normal bowel sounds. MUSCULOSKELETAL: Baseline range of motion and strength. SKIN: Warm, intact. No pallor. No rash. No redness. Capillary refill seems to be intact. NEURO: No evidence of any new focal weakness. Cranial nerves seem to be intact. PSYCH: The patient is in good mood. No anxiety. Optimal judgment. DIAGNOSTIC DATA: EKG was reviewed. The patient has sinus rhythm with some PACs , ventricular rate 85, MD 136, QRS 70, and QT corrected 459. Abdomen and pelvis CT was done and showed no significant acute process in the abdomen and pelvis. LABORATORY DATA: Reviewed. The patient has white count 12.9, hemoglobin 13, MCV 82.2, platelet count 280. Chemistry; sodium 136, potassium 5.5, chloride 105, carbon dioxide 20, anion gap 17, BUN 46, creatinine 3.0, the previous creatinine was 1.26, GFR was 18, glucose 116, calcium 10.7, total bilirubin 0.4. LFTs were negative. Albumin 4.6, lipase 26. ASSESSMENT AND PLAN: The patient will be placed in the hospital with following medical problems. 1. Acute kidney injury of unclear etiology. The patient has a creatinine at 3.0. In previous admissions, the patient's creatinine was 1.2. We will hydrate. We will monitor kidney function. There is report that the patient had been treated for a urinary tract infection. The patient does not recall the antibiotics she was taking. I wonder if this is a case of acute interstitial nephritis secondary to use of drugs. If kidney function is not improving, we will consult Nephrology. 2. History of dementia. The patient will need paraprofessional education assistant as inpatient. 3. Hyperlipidemia. The patient will need low-cholesterol diet as advised, reconciled so far. 4. Hyperkalemia with potassium 5.5. In the scenario of acute kidney injury, the patient received some hydration. We will monitor potassium and treat accordingly. 5. Hypercalcemia with calcium 10.7. The patient has received aggressive hydration in the ER. We will monitor and this could be secondary to dehydration. If not improving, might proceed to plan workup for a hyperparathyroidism. 6. Leukocytosis of 12.9. There is no evidence of infection as of now. We will send the urine. We will follow. 7. Uncontrolled hypertension, systolic blood pressure 155 on presentation. Reconcile home medications, adjust as needed. 8. Deep venous thrombosis prophylaxis. Job ID: [id number] [facility]ITAL[facility]rig[facility]
[2019-04-07 04:37] LABS: Bilirubin Negative (Negative); Blood, Urine Negative (Negative); Clarity Clear (Clear); Glucose, Urine (Dipstick) Normal (Negative); Leukocyte Negative Leu/uL (Negative); Nitrite Negative (Negative); Protein, Urine (Dipstick) Negative (Neg-Trace); RBC/HPF 0-3 HPF (0-3); Squamous Epithelial None Seen HPF (0-3); Urobilinogen Normal mg/dL (Less than 2); WBC/HPF 0-3 HPF (0-3)
[2019-04-07 04:52] LABS: Bacteria/HPF 1+ HPF (None Seen)
[2019-04-07 04:53] LABS: Urine Culture Reflex No No
[2019-04-07 05:03] LABS: #Basophils 0.1 thou/uL (0.0-0.2); #Eosinphils 0.1 thou/uL (0.0-0.7); #Lymphocytes 3.4 thou/uL (1.20-3.40); #Monocytes 1.3 thou/uL (0.11-0.59); #Neutrophils 6.8 thou/uL (1.40-6.50); %Basophils 0.6 % (0.0-1.0); %Eosinophils 0.8 % (0.0-10.0); %Lymphocytes 29.1 % (21.0-51.0); %Monocytes 10.8 % (0.0-10.0); %Neutrophils 58.7 % (42.0-75.0); Hemoglobin 10.8 g/dL (12.0-16.0); Mean Corpuscular HGB CONC 32.6 g/dL (32.0-36.0); Mean Corpuscular Hemoglobin 27.1 pg (27.0-31.0); Mean Platelet Volume 9.5 fL (7.4-10.4); Platelet Count 218 thou/uL (130-400); Red Blood Cell (RBC) Count 3.99 mill/uL (4.20-5.40); White Blood Cell (WBC) Count 11.6 thou/uL (4.8-10.8)
[2019-04-07 05:28] LABS: Anion Gap 11 mmol/L (10-20); BUN (Urea Nitrogen) 43 mg/dL (9.8-20.1); Calc. Creatinine Clearance 17 mL/min (70-130); Carbon Dioxide 19 mmol/L (23-31); Chloride 111 mmol/L (98-107); Estimated GFR-MDRD 23; Glucose 83 mg/dL (83-110); Potassium 4.1 mmol/L (3.5-5.1); Sodium 137 mmol/L (136-145)
[2019-04-07] MEDS: Sodium Chloride 0.9% 1,000 ML IV SCH ×3 (06:09→20:57)
[2019-04-07] MEDS: Enoxaparin Sodium 30 MG/0.3 ML SYRINGE SC SCH (07:54)
[2019-04-07] MEDS: Lactinex Tablet PO SCH (07:54)
[2019-04-07] MEDS ORDERED: Potassium Chloride 10 MEQ TAB PO SCH ×2 (08:00)
--- NOTE | 2019-04-07 12:38 | PDOC.HOSPP ---
- Subjective Subjective: Patient states she is feeling well but with a low appetite. Has only taken a couple of bites of her lunch. Admits to decreased oral intake at home. States she does not have much support at home and feels she is not coping well on her own. Denies any pain or complaints at present. - Objective Vital Signs & Weight: Vital Signs (12 hours) Temp Pulse Resp BP Pulse Ox 04/07/19 11:30 97.3 F L 70 16 124/65 98 04/07/19 08:46 97.6 F 73 20 136/63 100 04/07/19 04:03 97.5 F L 66 16 132/62 100 Weight Weight 145 lb 1 oz I&O: 04/06/19 04/07/19 04/08/19 06:59 06:59 06:59 Intake Total 1687 Output Total 250 Balance 1437 Result Diagrams: 04/07/19 04:51 04/07/19 04:51 ROS - Review of Systems All systems: All other ROS were reviewed and found negative. Constitutional: reports: other. denies: fever, chills, sweats, weakness, malaise Eyes: denies: pain, vision change, conjunctivae inflammation, eyelid inflammation, redness ENT: denies: ear pain, ear discharge, nose pain, nose discharge, nose congestion , mouth pain, mouth swelling, throat pain, throat swelling Respiratory: denies: cough, dry, shortness of breath, hemoptysis, SOB with excertion, pleuritic pain, sputum, wheezing Cardiovascular: denies: chest pain, palpitations, orthopnea, paroxysmal noc. dyspnea, edema, light headedness Gastrointestinal: denies: nausea, vomitting, abdominal pain, diarrhea, constipation, melena, hematochezia Genitourinary: denies: dysuria, frequency, incontinence, hematuria, retention Musculoskeletal: denies: neck pain, shoulder pain, arm pain, back pain, hand pain, leg pain, foot pain Skin: denies: rash, lesions Neurological: reports: weakness (feels generally weak and deconditioned.) - Medication Medications: Active Medications Generic Name Dose Route Start Last Admin Trade Name Freq PRN Reason Stop Dose Admin Acetaminophen 650 mg 04/06/19 21:25 04/07/19 00:09 Tylenol PO 650 mg Q4H PRN Administration Headache/Fever/Mild Pain (1-3) Acidophilus 1 tab 04/07/19 09:00 04/07/19 07:54 Floranex PO 1 tab DAILY ETELVINA Administration Enoxaparin Sodium 30 mg 04/07/19 09:00 04/07/19 07:54 Lovenox SC 30 mg 0900 ETELVINA Administration Sodium Chloride 1,000 mls @ 125 mls/hr 04/06/19 21:30 04/07/19 06:09 Normal Saline 0.9% IV 1,000 mls .Q8H ETELVINA Administration Melatonin 3 mg 04/06/19 23:06 04/07/19 00:07 Melatonin PO 3 mg HS PRN Administration Insomnia Sertraline HCl 25 mg 04/07/19 09:00 04/07/19 07:54 Zoloft PO 25 mg DAILY ETELVINA Administration - Exam NAD, awake alert Eye: PERRL, anicteric sclera ENT: normocephalic atraumatic, no oropharyngeal lesions, moist mucosa Neck: supple, symmetric, no JVD, no Thyromegaly, no lymphadenopathy, no carotid bruit Heart: negative: RRR, no murmur, no gallops, no rubs, normal peripheral pulses, irregular, diminshed peripheral pulses, murmur present, II/IV, III/IV Respiratory: CTAB, no wheezes, no rales, no ronchi, normal chest expansion, no tachypnea, normal percussion Gastrointestinal: soft, non-tender, non-distended, normal bowel sounds, no palpable masses Extremities: no cyanosis, no clubbing, no edema Skin: normal turgor, no lesions, no rashes Neurological: CN's grossly intact, normal sensation to touch, no weakness, no focal deficits, no new deficit Musculoskeletal: normal tone, normal strength Psychiatric: normal affect, normal behavior, A&O x 3 Hosp A/P (1) Acute kidney failure Status: Acute Plan: Receiving IV fluids. Improving. (2) Decreased appetite Code(s): R63.0 - ANOREXIA Status: Acute Plan: Awaiting contract implementation analyst. No n/v but reports lack of appetite. Similar problems at home. (3) Physical deconditioning Code(s): R53.81 - OTHER MALAISE Status: Chronic Plan: Progressively worsening. Open to being evaluated for rehab or placement. Awaiting PT/OT. (4) Hyperkalemia Code(s): E87.5 - HYPERKALEMIA Status: Resolved - Plan PT/OT Discussed with Dr. Zavala who advised changing her to inpatient: JANESSA, metabolic acidosis and hyperkalemia.
[2019-04-07] MEDS: Famotidine 20 MG TAB PO SCH (20:58)
[2019-04-07] MEDS: Donepezil HCl 10 MG TAB PO SCH (20:58)
[2019-04-07] MEDS: Simvastatin 5 MG TAB PO SCH (20:58)
[2019-04-08] MEDS: Acetaminophen 325 MG TAB PO PRN (02:56)
[2019-04-08] MEDS: Sodium Chloride 0.9% 1,000 ML IV SCH ×3 (04:52→23:21)
[2019-04-08] MEDS: Enoxaparin Sodium 30 MG/0.3 ML SYRINGE SC SCH (09:23)
[2019-04-08] MEDS: Lactinex Tablet PO SCH (09:24)
[2019-04-08 15:39] LABS: Calcium 9.2 mg/dL (7.8-10.44); Chloride 118 mmol/L (98-107); Potassium 4.9 mmol/L (3.5-5.1); Sodium 142 mmol/L (136-145)
[2019-04-08 15:41] LABS: Anion Gap 14 mmol/L (10-20); Carbon Dioxide 15 mmol/L (23-31)
[2019-04-08 15:43] LABS: Calc. Creatinine Clearance 31 mL/min (70-130); Estimated GFR-MDRD 46
[2019-04-08 15:44] LABS: BUN (Urea Nitrogen) Less than 4 mg/dL (9.8-20.1)
[2019-04-08 15:57] LABS: Glucose 111 mg/dL (83-110)
--- NOTE | 2019-04-08 18:01 | PDOC.HOSPP ---
- Subjective Subjective: Ms. Paz was seen today in follow-up of acute renal failure at approximately 10:15AM. She does not have any new complaints. - Objective Vital Signs & Weight: Vital Signs (12 hours) Temp Pulse Pulse Pulse Resp BP BP 04/08/19 16:00 67 18 04/08/19 15:51 81 69 176/83 H 166/74 H 04/08/19 12:00 68 18 04/08/19 07:35 97.9 F 64 18 BP Pulse Ox 04/08/19 16:00 176/80 H 99 04/08/19 15:51 04/08/19 12:00 157/67 H 100 04/08/19 07:35 154/70 H 98 Weight Admit Weight 145 lb 1 oz Weight 149 lb 12.8 oz I&O: 04/07/19 04/08/19 04/09/19 06:59 06:59 06:59 Intake Total 1687 1500 Output Total 250 1200 Balance 1437 300 Result Diagrams: 04/07/19 04:51 04/08/19 15:15 ROS - Review of Systems All systems: All other ROS were reviewed and found negative. - Medication Medications: Active Medications Generic Name Dose Route Start Last Admin Trade Name Freq PRN Reason Stop Dose Admin Acetaminophen 650 mg 04/06/19 21:25 04/08/19 02:56 Tylenol PO 650 mg Q4H PRN Administration Headache/Fever/Mild Pain (1-3) Acidophilus 1 tab 04/07/19 09:00 04/08/19 09:24 Floranex PO 1 tab DAILY ETELVINA Administration Donepezil HCl 10 mg 04/07/19 21:00 04/07/19 20:58 Aricept PO 10 mg HS ETELVINA Administration Enoxaparin Sodium 30 mg 04/07/19 09:00 04/08/19 09:23 Lovenox SC 30 mg 0900 ETELVINA Administration Famotidine 10 mg 04/07/19 21:00 04/07/19 20:58 Pepcid PO 10 mg HS ETELVINA Administration Sodium Chloride 1,000 mls @ 125 mls/hr 04/06/19 21:30 04/08/19 12:11 Normal Saline 0.9% IV 1,000 mls .Q8H ETELVINA Administration Melatonin 3 mg 04/06/19 23:06 04/07/19 00:07 Melatonin PO 3 mg HS PRN Administration Insomnia Ondansetron HCl 4 mg 04/06/19 21:25 04/08/19 02:57 Zofran IVP 4 mg Q6H PRN Administration Nausea/Vomiting Sertraline HCl 25 mg 04/07/19 09:00 04/08/19 09:24 Zoloft PO 25 mg DAILY ETELVINA Administration Simvastatin 10 mg 04/07/19 21:00 04/07/19 20:58 Zocor PO 10 mg HS ETELVINA Administration - Exam Eye: PERRL, anicteric sclera Heart: RRR, no murmur, no gallops, no rubs Respiratory: CTAB, no wheezes, no rales, no ronchi, normal chest expansion Gastrointestinal: soft, non-tender, non-distended, normal bowel sounds, no palpable masses, no hepatomegaly, no splenomegaly Extremities: no edema Hosp A/P (1) Acute kidney failure Status: Acute (2) HTN (hypertension) Code(s): I10 - ESSENTIAL (PRIMARY) HYPERTENSION Status: Chronic (3) Chronic kidney disease, stage 3 Code(s): N18.3 - CHRONIC KIDNEY DISEASE, STAGE 3 (MODERATE) Status: Acute (4) Diabetes mellitus type 2 in nonobese Code(s): E11.9 - TYPE 2 DIABETES MELLITUS WITHOUT COMPLICATIONS Status: Acute (5) Physical deconditioning Code(s): R53.81 - OTHER MALAISE Status: Chronic (6) Dementia Code(s): F03.90 - UNSPECIFIED DEMENTIA WITHOUT BEHAVIORAL DISTURBANCE Status: Chronic - Plan * Acute on chronic kidney injury- improving with hydration- likely due to pre- renal azotemia * DM-blood glucose is stable * Dementia- stable * Re-check lab work in the AM, and hopefully home soon
[2019-04-08] MEDS: Simvastatin 5 MG TAB PO SCH (20:18)
[2019-04-08] MEDS: Famotidine 20 MG TAB PO SCH (20:18)
[2019-04-08] MEDS: Donepezil HCl 10 MG TAB PO SCH (20:19)
[2019-04-09 05:50] LABS: Anion Gap 11 mmol/L (10-20); BUN (Urea Nitrogen) 17 mg/dL (9.8-20.1); Calc. Creatinine Clearance 34 mL/min (70-130); Calcium 8.8 mg/dL (7.8-10.44); Carbon Dioxide 20 mmol/L (23-31); Chloride 111 mmol/L (98-107); Estimated GFR-MDRD 50; Glucose 86 mg/dL (83-110); Potassium 3.8 mmol/L (3.5-5.1); Sodium 138 mmol/L (136-145)
[2019-04-09] MEDS: Sodium Chloride 0.9% 1,000 ML IV SCH (06:23)
[2019-04-09] MEDS ORDERED: Loperamide HCl 1 MG/7.5 ML UDCUP PO PRN (08:04)
[2019-04-09] MEDS: Lactinex Tablet PO SCH (08:52)
[2019-04-09] MEDS: Enoxaparin Sodium 30 MG/0.3 ML SYRINGE SC SCH (08:52)
--- NOTE | 2019-04-09 14:18 | PDOC.HOSPP ---
- Subjective Encounter Date: 04/09/19 Encounter Time: 10:35 Subjective: Ms. Paz was seen today in follow-up of acute renal failure. She is feeling much better. She still says she needs more help at home, but this is in the form of someone to help with cooking and cleaning. - Objective Vital Signs & Weight: Vital Signs (12 hours) Temp Pulse Pulse Pulse Resp BP BP 04/09/19 11:46 97.6 F 72 16 04/09/19 10:17 78 71 151/70 H 152/70 H 04/09/19 07:53 98.3 F 70 14 04/09/19 04:00 97.7 F 66 20 BP BP Pulse Ox 04/09/19 11:46 144/66 H 100 04/09/19 10:17 04/09/19 07:53 149/67 H 100 04/09/19 04:00 150/70 H 98 Weight Admit Weight 145 lb 1 oz Weight 149 lb 12.8 oz I&O: 04/08/19 04/09/19 04/10/19 06:59 06:59 06:59 Intake Total 1500 600 Output Total 1200 1150 Balance 300 -550 Result Diagrams: 04/07/19 04:51 04/09/19 04:48 ROS - Medication Medications: Active Medications Generic Name Dose Route Start Last Admin Trade Name Freq PRN Reason Stop Dose Admin Acetaminophen 650 mg 04/06/19 21:25 04/08/19 02:56 Tylenol PO 650 mg Q4H PRN Administration Headache/Fever/Mild Pain (1-3) Acidophilus 1 tab 04/07/19 09:00 04/09/19 08:52 Floranex PO 1 tab DAILY ETELVINA Administration Donepezil HCl 10 mg 04/07/19 21:00 04/08/19 20:19 Aricept PO 10 mg HS ETELVINA Administration Enoxaparin Sodium 30 mg 04/07/19 09:00 04/09/19 08:52 Lovenox SC 30 mg 0900 ETELVINA Administration Famotidine 10 mg 04/07/19 21:00 04/08/19 20:18 Pepcid PO 10 mg HS ETELVINA Administration Melatonin 3 mg 04/06/19 23:06 04/07/19 00:07 Melatonin PO 3 mg HS PRN Administration Insomnia Ondansetron HCl 4 mg 04/06/19 21:25 04/08/19 02:57 Zofran IVP 4 mg Q6H PRN Administration Nausea/Vomiting Sertraline HCl 25 mg 04/07/19 09:00 04/09/19 08:52 Zoloft PO 25 mg DAILY ETELVINA Administration Simvastatin 10 mg 04/07/19 21:00 04/08/19 20:18 Zocor PO 10 mg HS ETELVINA Administration - Exam Eye: PERRL, anicteric sclera Neck: supple Heart: RRR, no murmur, no gallops, no rubs, normal peripheral pulses Respiratory: CTAB, no wheezes, no rales, no ronchi, normal chest expansion Gastrointestinal: soft, non-tender, non-distended, normal bowel sounds, no palpable masses Extremities: no cyanosis, no clubbing, no edema Hosp A/P (1) Acute kidney failure Status: Acute (2) HTN (hypertension) Code(s): I10 - ESSENTIAL (PRIMARY) HYPERTENSION Status: Chronic (3) Chronic kidney disease, stage 3 Code(s): N18.3 - CHRONIC KIDNEY DISEASE, STAGE 3 (MODERATE) Status: Acute (4) Diabetes mellitus type 2 in nonobese Code(s): E11.9 - TYPE 2 DIABETES MELLITUS WITHOUT COMPLICATIONS Status: Acute (5) Physical deconditioning Code(s): R53.81 - OTHER MALAISE Status: Chronic (6) Dementia Code(s): F03.90 - UNSPECIFIED DEMENTIA WITHOUT BEHAVIORAL DISTURBANCE Status: Chronic - Plan * Acute kidney injury- much improved- I suspect she is at her baseline * HTN- blood pressure is controlled * DM-blood glucose is stable * Anticipate Home later today
[2019-04-09 16:16] VITALS: TEMP 97.8
[2019-04-09 16:17] VITALS: BP 151/67
--- NOTE | 2019-04-09 20:19 | CON ---
DATE OF CONSULTATION: CONSULTING PHYSICIAN: Isael Connolly MD REQUESTING PHYSICIAN: Aguila Jarquin MD REASON FOR CONSULTATION: Acute on chronic kidney disease and hyperkalemia. IMPRESSION: 1. Acute on chronic kidney disease. This is likely hemodynamically mediated prerenal acute kidney injury. 2. Hyperkalemia related to reduced GFR. PLAN: 1. Renal supportive measures with gentle rehydration. 2. Renally dose all medications. 3. Avoid potentially nephrotoxic agents. 4. Further management will be dependent on the clinical course. 5. Hold potassium. HISTORY OF PRESENT ILLNESS: An 88-year-old [place] female patient, who presented here with abdominal pain with nausea and anorexia and obviously poor p.o. intake. The patient presented here and was noted with a creatinine of 3.0 with potassium of 5.5, possible need for renal consultation. PAST MEDICAL HISTORY: Significant for hypertension, chronic kidney disease, breast cancer status post mastectomy. MEDICATIONS: Reviewed and as documented on [employer]. SOCIAL HISTORY: No alcohol. No tobacco. No illicit drug use. ALLERGIES: PENICILLIN. REVIEW OF SYSTEMS: As documented in the body of the history. All the other systems were reviewed and found not to be significantly related to presenting illness. PHYSICAL EXAMINATION: GENERAL: The patient was found not to be in any obvious distress, hemodynamically stable, noted with the following vital signs. VITAL SIGNS: Afebrile, temperature 97.8, pulse 73, respiratory rate of 16, O2 saturation 100%, and blood pressure 144/66. HEENT: Unremarkable. CARDIOVASCULAR SYSTEM: First and second heart sounds were heard. RESPIRATORY SYSTEM: Clear to auscultation. DIGESTIVE SYSTEM: Revealed a benign abdomen with positive bowel sounds. EXTREMITIES: No peripheral edema. SKIN: No new gross rash. LYMPHATICS: No peripheral lymphadenopathy. SUMMARY: An 88-year-old [place] female patient, who presented here with acute on chronic kidney disease, hyperkalemia in the context of potassium ingestion with reduced GFR due to prerenal state. Thank you for this consultation. We will follow with you. Job ID: [id number]
--- NOTE | 2019-04-09 22:30 | DIS ---
DATE OF ADMISSION: 04/07/2019 DATE OF DISCHARGE: 04/09/2019 PRIMARY CARE PHYSICIAN: Kervin Gatica MD DISCHARGE DISPOSITION: Home. PRIMARY DISCHARGE DIAGNOSES: 1. Acute kidney injury, secondary to prerenal azotemia. 2. Dehydration. 3. Diabetes mellitus, type 2. 4. Hypertension. 5. Depression. DISCHARGE MEDICATIONS: Include: 1. Zoloft 50 mg daily. 2. Pravachol 20 mg at bedtime. 3. Pepcid 10 mg at bedtime. 4. Donepezil 10 mg at bedtime. PROCEDURES DONE DURING THE ADMISSION: The patient had a CT scan of the abdomen and pelvis showing no acute process. CODE STATUS: Full code. ALLERGIES: TO PENICILLIN. HOSPITAL COURSE: Ms. Paz is a pleasant 88-year-old female, who presented to the emergency room with complaints of abdominal pain and anorexia. She had a CT scan of the abdomen done, which was essentially negative. She was found to have acute renal failure with a creatinine of 3.02 at the time of admission. On further discussion with the patient, she admits that she has a son, who is being treated for cancer at home and she says that she typically does not like to eat when she is at home. The acute kidney injury was due to prerenal azotemia and completely corrected after IV fluid administration. We further talked with the patient with regard to her needs at home. She says she is able to get around with her walker. She can transfer and perform all of her activities of daily living with the exception of cooking. She says she felt like she needed some extra help with that, as well as some light cleaning. She already had home health services for [facility]. I explained her that this will need to be done through her primary care physician with provider services to have an unskilled person come to her home. Also with regard to her anorexia, this is likely due to some mild depression. She had already been on Zoloft at 25 mg daily. We will go ahead and increase this up to 50 mg. She was also given a referral to see Dr. Kirkland in the outpatient setting with regard to ensuring her renal function remains stable and also she is to follow up with her primary care physician in 1 to 2 weeks. Job ID: [id number]
--- NOTE | 2019-04-10 05:32 | PQF ---
[facility] Medical Director Crystal Reports Winform ViewerCRISTIAN DEMARCO TONI MD [id number] [id number] CLINICAL DOCUMENTATION CLARIFICATION FORM: POST DISCHARGE Addendum to original discharge summary date: ____ Late entry note date: __ DATE: 04/10/19 ATTN: Augila Michelle Please exercise your independent, professional judgment in responding to the clarification form. Clinical indicators are provided on the bottom of this form for your review Can you please further specify if metabolic acidosis is ruled in or ruled out? Metabolic Acidosis [ X ] Ruled in diagnosis [X ] Continue to treat [ ] Resolved [ ] Ruled out diagnosis [ ] Cannot rule out diagnosis [ ] Other diagnosis please specify [ ] Unable to determine In addition, please specify: Present on Admission (POA): [ X ] Yes [ ] No [ ] Unable to determine For continuity of documentation, please document condition throughout progress notes and discharge summary. Thank You. CLINICAL INDICATORS - H and P 04/07 pg.1- "Chief complaint: Abdominal pain" H and P 04/07 pg.1- "The patient has anorexia, symptoms started insidiously and has been gradually getting worse." Laboratory- "Anion Gap 17, 11, 14, 11" Hospitalist PN 04/07 Dr. Hamilton pg.4- "JANESSA, metabolic acidosis, hyperkalemia" RISK FACTORS anorexia- H and P pg.1 acute kidney injury- DS pg.1 8 Dehydration- DS pg.1 8 Hypertension- DS pg.1 8 Diabetes mellitus type 2- DS pg.1 8 TREATMENTS IV fluids- MAR 04/07 Chemistry monitoring- Laboratory (This form is maintained as a part of the permanent medical record) 2014 [employer]. All Rights Reserved Jay Jay [email or web address] [not provided] MTDD
== END 2019-04-09 17:55 | disposition home health service (06) | DRG 684 ==
LOC: ERS 16:37 → 2SW 20:10 → OBSVTOIN 04-07 11:53 → 2NO 04-07 19:41
PROVIDERS: ADMIT Hospitalist; ATTEND Hospitalist
DX: N17.9 Acute kidney failure, unspecified (principal); E86.0 Dehydration; F32.9 Major depressive disorder, single episode, unspecified; R63.0 Anorexia; F03.90 Unspecified dementia, unspecified severity, without behavioral disturbance, psychotic disturbance, mood disturbance, and anxiety; E78.5 Hyperlipidemia, unspecified; E87.5 Hyperkalemia; E83.52 Hypercalcemia; N18.3 Chronic kidney disease, stage 3 (moderate); I12.9 Hypertensive chronic kidney disease with stage 1 through stage 4 chronic kidney disease, or unspecified chronic kidney disease; Z90.49 Acquired absence of other specified parts of digestive tract; Z68.23 Body mass index [BMI] 23.0-23.9, adult; Z88.0 Allergy status to penicillin; Z79.899 Other long term (current) drug therapy
CPT/HCPCS: 36415; 74176; 80048; 80053; 81001; 83630; 83690; 83735; 84484; 85025; 87045; 87046; 87324; 87449; 87899; 93005; 96361; 96374; J1650; J2405